=== PATIENT | female | born 1975 | race Caucasian/White ===

== ENCOUNTER 2024-02-08 00:23 | Emergency (ER) | payer MEDICAID ==
[~2024-02-08] VITALS: Ht 165.1 cm; Wt 70.0 kg
[2024-02-08 00:30] VITALS: TEMP 98; O2SAT 97
[2024-02-08] MEDS ORDERED: IBUPROFEN 600MG TABLET PO STA (00:34)
[2024-02-08] MEDS ORDERED: CYCL10TA21 MT (02:13)
[2024-02-08] MEDS ORDERED: IBUP-2029 MT (02:13)
[2024-02-08 02:26] VITALS: BP 153/73; PULSE 84; RESP 18
[2024-02-08] MEDS: IBUPROFEN 600MG TABLET PO NR (02:26)
== END 2024-02-08 03:09 | disposition home or self-care (01) ==
LOC: ER 00:23
DX: S09.90XA Unspecified injury of head, initial encounter (principal); Z88.2 Allergy status to sulfonamides; W18.30XA Fall on same level, unspecified, initial encounter; Y93.89 Activity, other specified; Y92.89 Other specified places as the place of occurrence of the external cause; Y99.8 Other external cause status
CPT/HCPCS: 99284